=== PATIENT | female | born 1980 | race Caucasian/White ===

== ENCOUNTER 2017-05-24 20:33 | Emergency (ER) | payer BC ==
--- NOTE | 2017-05-24 21:35 | Emergency Department Record ---
History of Present Illness - General Chief Complaint: Shortness of breath Stated Complaint: JANETH CHEST KIAN Time Seen by Provider: 05/24/17 21:34 Source: Patient, Family () Mode of Arrival: Ambulatory - History of Present Illness Initial Comments: The patient states that she began having plugged ears, head congestion, post nasal drip, and sinus pressure with thick [id number] drainage two nights ago. She has a history of sinus infections and this feels like her prior infections. [place] when she developed chest tightness all the way around and felt she needed to loosen her bra. Onset/Timin -: Days(s) Severity scale (1-10): 8 Quality: Other Consistency: Constant Improves With: Nothing Worsens With: Coughing, Inspiration Associated Symptoms: Cough, Nausea/vomiting, Pain with inspiration Treatments Prior to Arrival: None - Related Data Home Oxygen Therapy: No Home Medications Medication Instructions Recorded Confirmed Last Taken Lamotrigine [Lamictal] 150 mg PO DAILY 05/24/17 05/24/17 05/24/17 Allergies Allergy/AdvReac Type Severity Reaction Status Date / Time No Known Drug Allergies Allergy Verified 05/24/17 21:00 Travel Screening - Travel/Exposure Within Last 30 Days Have you traveled within the last 30 days?: No - Travel Symptoms Symptom Screening: None Review of Systems Reviewed: No additional complaints except as noted below Constitutional: Reports: As per HPI. Denies: Chills, Fever, Malaise, Night sweats, Weakness, Weight change Eyes: Reports: As per HPI. Denies: Eye discharge, Eye pain, Photophobia, Vision change ENT: Reports: As per HPI. Denies: Congestion, Dental pain, Ear pain, Epistaxis , Hearing loss, Throat pain Respiratory: Reports: As per HPI. Denies: Cough, Dyspnea, Hemoptysis, Stridor, Wheezes Cardiovascular: Reports: As per HPI. Denies: Arrhythmia, Chest pain, Dyspnea on exertion, Edema, Murmurs, Orthopnea, Palpitations, Paroxysmal nocturnal dyspnea, Rheumatic Fever, Syncope Endocrine: Reports: As per HPI. Denies: Fatigue, Heat or cold intolerance, Polydipsia, Polyuria Gastrointestinal: Reports: As per HPI. Denies: Abdominal pain, Constipation, Diarrhea, Hematemesis, Hematochezia, Melena, Nausea, Vomiting Genitourinary: Reports: As per HPI. Denies: Abnormal menses, Discharge, Dyspareunia, Dysuria, Frequency, Hematuria, Incontinence, Retention, Urgency Musculoskeletal: Reports: As per HPI. Denies: Arthralgia, Back pain, Gout, Joint swelling, Myalgia, Neck pain Skin: Reports: As per HPI. Denies: Bruising, Change in color, Change in hair/ nails, Lesions, Pruritus, Rash Neurological: Reports: As per HPI. Denies: Abnormal gait, Confusion, Headache, Numbness, Paresthesias, Seizure, Tingling, Tremors, Vertigo, Weakness Psychiatric: Reports: As per HPI. Denies: Anxiety, Auditory hallucinations, Depression, Homicidal thoughts, Suicidal thoughts, Visual hallucinations Hematological/Lymphatic: Reports: As per HPI. Denies: Anemia, Blood Clots, Easy bleeding, Easy bruising, Swollen glands Past Medical History - SOCIAL HISTORY Smoking Status: Current every day smoker - RESPIRATORY Hx Respiratory Disorders: No - CARDIOVASCULAR Hx Cardio Disorders: Yes Hx Deep Vein Thrombosis: Yes (R side of chest?) - NEURO Hx Neuro Disorders: Yes Hx Seizures: Yes (no sz 15 yrs) - GI Hx GI Disorders: No - Hx Genitourinary Disorders: Yes Hx Kidney Stones: Yes - ENDOCRINE Hx Endocrine Disorders: No - MUSCULOSKELETAL Hx Musculoskeletal Disorders: No - PSYCH Hx Psych Problems: Yes Hx Anxiety: Yes Hx Depression: Yes - HEMATOLOGY/ONCOLOGY Hx Hematology/Oncology Disorders: No Family Medical History Any Significant Family History?: Yes Hx Cancer: Grandparents Hx Diabetes: Grandparents Hx Heart Disease: Father, Grandparents Physical Exam - General General Appearance: Alert, Oriented x3, Cooperative, No acute distress ( congested plugged voice ) - Head Head exam: Normal inspection - Eye Eye exam: Normal appearance, PERRL Pupils: Normal accommodation - ENT ENT exam: Normal exam, Mucous membranes moist, Normal external ear exam, Normal orophraynx, TM's normal bilaterally (normal landmarks, pink TM's) Ear exam: Normal external inspection. negative: External canal tenderness Nasal Exam: Normal inspection, Sinus tenderness (all sinuses tender). negative : Discharge Mouth exam: Normal external inspection, Tongue normal Teeth exam: Normal inspection. negative: Dental caries Throat exam: Normal inspection. negative: Tonsillar erythema, Tonsillar exudate - Neck Neck exam: Normal inspection, Full ROM. negative: Lymphadenopathy, Meningismus , Tenderness - Respiratory Respiratory exam: Normal lung sounds bilaterally. negative: Respiratory distress - Cardiovascular Cardiovascular Exam: Normal rhythm, Normal heart sounds, Tachycardia - GI/Abdominal GI/Abdominal exam: Soft, Normal bowel sounds. negative: Tenderness - Rectal Rectal exam: Deferred - exam: Deferred - Extremities Extremities exam: Normal inspection, Full ROM, Normal capillary refill. negative: Calf tenderness, Pedal edema, Tenderness - Back Back exam: Reports: Normal inspection, Full ROM. Denies: Muscle spasm, Rash noted, Tenderness - Neurological Neurological exam: Alert, CN II-XII intact, Normal gait, Oriented X3, Reflexes normal. negative: Motor sensory deficit - Psychiatric Psychiatric exam: Normal affect, Normal mood - Skin Skin exam: Dry, Intact, Normal color, Warm Course Vital Signs 05/24/17 21:00 Temperature 100.5 F H Pulse Rate [ 109 H Pulse Ox Probe] Respiratory 26 H Rate Blood Pressure 126/92 [Left Arm] Pulse Ox 98 - Reevaluation(s) Reevaluation #1: Antibiotics being infused, results discussed, still congested but ready for DC home. 05/24/17 23:00 Medical Decision Making - Management Options MDM Management: No Additional Work-up Planned - Data Complexity MDM Data: Labs Ordered and/or Reviewed, X-Ray Ordered and/or Reviewed (CXR two view Neg per radiologist.) - Lab Data Result diagrams: 05/24/17 21:16 05/24/17 21:16 Disposition Disposition: Discharge Clinical Impression: Sinusitis, acute Qualifiers: Sinusitis location: pansinusitis Recurrence: recurrent Qualified Code(s): J01.41 - Acute recurrent pansinusitis Disposition: Home, Self-Care Condition: (1) Good Instructions: Sinusitis (ED) Additional Instructions: Take antibiotics until gone including the refill. Follow up with PCP as needed. Forms: Patient Portal Access Quality - Quality Measures Quality Measures: Adult Sinusitis - Adult Sinusitis: CT Use Quality Measure: Measure #333: Adult Sinusitis Adult Sinusitis: CT for Acute Sinusitis: < CT NOT ordered or received within 28 Days > [G9349] - Blood Pressure Screening Blood Pressure Classification: Normal BP Reading Systolic Measurement: 99 Diastolic Measurement: 51 Screening for High Blood Pressure: < Normal BP, F/U Not Required > [G8783] Normal BP Follow-up Interventions: No follow-up required
[2017-05-24] MEDS ORDERED: 0.9 % SODIUM CHLORIDE 1,000 ML BAG IV ONE ×2 (21:54→21:56)
[2017-05-24] MEDS ORDERED: ACETAMINOPHEN 325 MG TAB PO ONE (21:55)
[2017-05-24] MEDS ORDERED: ONDANSETRON HCL IV 4 MG/2 ML VIAL IVP ONE (21:55)
[2017-05-24] MEDS ORDERED: CEFTRIAXONE SODIUM 2 GM in 0.9 % SODIUM CHLORIDE 100ML 100 ML IVPB ONE (21:56)
[2017-05-24 22:04] LABS: HEMATOCRIT 40.1 % (35.0-47.0); HEMOGLOBIN 13.6 gm/dl (11.6-16.0); MEAN CELL VOLUME 90.5 fl (81-97); MEAN CORPUSCULAR HEMOGLOBIN 30.7 pg (27-33); MEAN CORPUSCULAR HGB CONC 33.9 g/dl (32-36); MEAN PLATELET VOLUME 10.6 fl (7.4-10.4); PLATELET COUNT 279 K/uL (130-400); RED BLOOD COUNT 4.43 M/uL (3.80-5.40); RED CELL DISTRIBUTION WIDTH 13.7 % (11.5-14.5); WHITE BLOOD COUNT W/O DIFF 15.3 K/uL (4.2-12.2)
[2017-05-24 22:11] LABS: ALB/GLOB RATIO 1.7 (1.1-1.8); ALBUMIN 4.4 gm/dL (3.5-5.0); ALKALINE PHOSPHATASE 78 U/L (38-126); ALT/SGPT 29 U/L (9-52); ANION GAP 12.8 (7-16); AST/SGOT 14 U/L (14-36); BILIRUBIN,TOTAL 0.39 mg/dL (0.2-1.3); BLOOD UREA NITROGEN 12 mg/dL (7-17); CARBON DIOXIDE 21.2 mmol/L (22-30); CREATININE 0.7 mg/dL (0.52-1.04); EST GLOMERULAR FILTRATION RATE > 60 ml/min; GLUCOSE,RANDOM 97 mg/dL (70-110)
[2017-05-24 22:21] LABS: INR 0.94; PROTHROMBIN TIME (PATIENT) 10.1 SECONDS (9.5-12.1)
[2017-05-24 22:27] LABS: D-DIMER 0.36 mg/L FEU (0-0.59)
[2017-05-24 22:28] LABS: TROPONIN I < 0.012 ng/mL (0.00-0.034)
[2017-05-24 22:30] LABS: URINE APPEARANCE CLEAR; URINE BILIRUBIN NEGATIVE (NEGATIVE); URINE BLOOD NEGATIVE (NEGATIVE); URINE COLOR YELLOW; URINE GLUCOSE (UA) NEGATIVE (NEGATIVE); URINE KETONE NEGATIVE (NEGATIVE); URINE LEUKOCYTE ESTERASE NEGATIVE (NEGATIVE); URINE NITRITE NEGATIVE (NEGATIVE); URINE PROTEIN NEGATIVE (NEGATIVE); URINE UROBILINOGEN 0.2 E.U./dL (0.20 - 1.00)
--- NOTE | 2017-05-24 23:48 | Emergency Department Record ---
History of Present Illness - General Chief Complaint: Shortness of breath Stated Complaint: JANETH CHEST KIAN Time Seen by Provider: 05/24/17 21:34 Source: Patient, Family () Mode of Arrival: Ambulatory - History of Present Illness Onset/Timin -: Days(s) Severity scale (1-10): 8 Quality: Other Consistency: Constant Improves With: Nothing Worsens With: Coughing, Inspiration Associated Symptoms: Cough, Nausea/vomiting, Pain with inspiration Treatments Prior to Arrival: None - Related Data Home Oxygen Therapy: No Home Medications Medication Instructions Recorded Confirmed Last Taken Lamotrigine [Lamictal] 150 mg PO DAILY 05/24/17 05/24/17 05/24/17 Previous Rx's Medication Instructions Recorded Azithromycin [Zithromax] 500 mg PO DAILY #10 tab 05/24/17 Allergies Allergy/AdvReac Type Severity Reaction Status Date / Time No Known Drug Allergies Allergy Verified 05/24/17 21:00 Travel Screening - Travel/Exposure Within Last 30 Days Have you traveled within the last 30 days?: No - Travel Symptoms Symptom Screening: None Review of Systems Constitutional: Reports: As per HPI. Denies: Chills, Fever, Malaise, Night sweats, Weakness, Weight change Eyes: Reports: As per HPI. Denies: Eye discharge, Eye pain, Photophobia, Vision change ENT: Reports: As per HPI. Denies: Congestion, Dental pain, Ear pain, Epistaxis , Hearing loss, Throat pain Respiratory: Reports: As per HPI. Denies: Cough, Dyspnea, Hemoptysis, Stridor, Wheezes Cardiovascular: Reports: As per HPI. Denies: Arrhythmia, Chest pain, Dyspnea on exertion, Edema, Murmurs, Orthopnea, Palpitations, Paroxysmal nocturnal dyspnea, Rheumatic Fever, Syncope Endocrine: Reports: As per HPI. Denies: Fatigue, Heat or cold intolerance, Polydipsia, Polyuria Gastrointestinal: Reports: As per HPI. Denies: Abdominal pain, Constipation, Diarrhea, Hematemesis, Hematochezia, Melena, Nausea, Vomiting Genitourinary: Reports: As per HPI. Denies: Abnormal menses, Discharge, Dyspareunia, Dysuria, Frequency, Hematuria, Incontinence, Retention, Urgency Musculoskeletal: Reports: As per HPI. Denies: Arthralgia, Back pain, Gout, Joint swelling, Myalgia, Neck pain Skin: Reports: As per HPI. Denies: Bruising, Change in color, Change in hair/ nails, Lesions, Pruritus, Rash Neurological: Reports: As per HPI. Denies: Abnormal gait, Confusion, Headache, Numbness, Paresthesias, Seizure, Tingling, Tremors, Vertigo, Weakness Psychiatric: Reports: As per HPI. Denies: Anxiety, Auditory hallucinations, Depression, Homicidal thoughts, Suicidal thoughts, Visual hallucinations Hematological/Lymphatic: Reports: As per HPI. Denies: Anemia, Blood Clots, Easy bleeding, Easy bruising, Swollen glands Past Medical History - SOCIAL HISTORY Smoking Status: Current every day smoker - RESPIRATORY Hx Respiratory Disorders: No - CARDIOVASCULAR Hx Cardio Disorders: Yes Hx Deep Vein Thrombosis: Yes (R side of chest?) - NEURO Hx Neuro Disorders: Yes Hx Seizures: Yes (no sz 15 yrs) - GI Hx GI Disorders: No - Hx Genitourinary Disorders: Yes Hx Kidney Stones: Yes - ENDOCRINE Hx Endocrine Disorders: No - MUSCULOSKELETAL Hx Musculoskeletal Disorders: No - PSYCH Hx Psych Problems: Yes Hx Anxiety: Yes Hx Depression: Yes - HEMATOLOGY/ONCOLOGY Hx Hematology/Oncology Disorders: No Family Medical History Any Significant Family History?: Yes Hx Cancer: Grandparents Hx Diabetes: Grandparents Hx Heart Disease: Father, Grandparents Course Vital Signs 05/24/17 05/24/17 05/24/17 21:00 22:24 23:41 Temperature 100.5 F H 99.3 F Pulse Rate [ 90 80 Floor Framer ] Pulse Rate [ 109 H Pulse Ox Probe] Respiratory 26 H 18 16 Rate Blood Pressure 126/92 107/68 [Left Arm] Blood Pressure 99/51 [Right Arm] Pulse Ox 98 97 98 Medical Decision Making - Lab Data Result diagrams: 05/24/17 21:16 05/24/17 21:16 Lab Results 05/24/17 05/24/17 05/24/17 Range/Units 21:16 21:16 21:16 WBC 15.3 H (4.2-12.2) K/uL RBC 4.43 (3.80-5.40) M/uL Hgb 13.6 (11.6-16.0) gm/dl Hct 40.1 (35.0-47.0) % MCV 90.5 (81-97) fl MCH 30.7 (27-33) pg MCHC 33.9 (32-36) g/dl RDW 13.7 (11.5-14.5) % Plt Count 279 (130-400) K/uL MPV 10.6 H (7.4-10.4) fl Neutrophils % 79.0 (47-80) % Band Neutrophils % 3.0 (0-5) % Eosinophils % Not Reportable Basophils % Not Reportable Lymphocytes 16.0 (16-45) % Monocytes 2.0 (0-9) % Basophils 0.0 (0-6) % Eosinophil Count 0.0 (0-6) % PT 10.1 (9.5-12.1) SECONDS INR 0.94 D-Dimer 0.36 (0-0.59) mg/L FEU Sodium 141 (136-145) mmol/L Potassium 3.9 (3.5-5.1) mmol/L Chloride 107 (98-107) mmol/L Carbon Dioxide 21.2 L (22-30) mmol/L Anion Gap 12.8 (7-16) BUN 12 (7-17) mg/dL Creatinine 0.7 (0.52-1.04) mg/dL Estimated GFR > 60 ml/min Random Glucose 97 (70-110) mg/dL Lactic Acid (0.7-2.1) mmol/L Calcium 9.2 (8.5-10.1) mg/dL Total Bilirubin 0.39 (0.2-1.3) mg/dL AST 14 (14-36) U/L ALT 29 (9-52) U/L Alkaline Phosphatase 78 (38-126) U/L Troponin I < 0.012 (0.00-0.034) ng/mL Total Protein 7.0 (6.3-8.2) gm/dL Albumin 4.4 (3.5-5.0) gm/dL Globulin 2.6 (1.4-4.8) gm/dL Albumin/Globulin Ratio 1.7 (1.1-1.8) Urine Color Urine Appearance Urine pH (5.0-8.0) Ur Specific [place] (1.002-1.030) Urine Protein (NEGATIVE) Urine Glucose (UA) (NEGATIVE) Urine Ketones (NEGATIVE) Urine Blood (NEGATIVE) Urine Nitrite (NEGATIVE) Urine Bilirubin (NEGATIVE) Urine Urobilinogen (0.20 - 1.00) E.U./dL Ur Leukocyte Esterase (NEGATIVE) 05/24/17 05/24/17 Range/Units 22:22 22:22 WBC (4.2-12.2) K/uL RBC (3.80-5.40) M/uL Hgb (11.6-16.0) gm/dl Hct (35.0-47.0) % MCV (81-97) fl MCH (27-33) pg MCHC (32-36) g/dl RDW (11.5-14.5) % Plt Count (130-400) K/uL MPV (7.4-10.4) fl Neutrophils % (47-80) % Band Neutrophils % (0-5) % Eosinophils % Basophils % Lymphocytes (16-45) % Monocytes (0-9) % Basophils (0-6) % Eosinophil Count (0-6) % PT (9.5-12.1) SECONDS INR D-Dimer (0-0.59) mg/L FEU Sodium (136-145) mmol/L Potassium (3.5-5.1) mmol/L Chloride (98-107) mmol/L Carbon Dioxide (22-30) mmol/L Anion Gap (7-16) BUN (7-17) mg/dL Creatinine (0.52-1.04) mg/dL Estimated GFR ml/min Random Glucose (70-110) mg/dL Lactic Acid 1.1 (0.7-2.1) mmol/L Calcium (8.5-10.1) mg/dL Total Bilirubin (0.2-1.3) mg/dL AST (14-36) U/L ALT (9-52) U/L Alkaline Phosphatase (38-126) U/L Troponin I (0.00-0.034) ng/mL Total Protein (6.3-8.2) gm/dL Albumin (3.5-5.0) gm/dL Globulin (1.4-4.8) gm/dL Albumin/Globulin Ratio (1.1-1.8) Urine Color Yellow Urine Appearance Clear Urine pH 6.5 (5.0-8.0) Ur Specific [place] 1.020 (1.002-1.030) Urine Protein Negative (NEGATIVE) Urine Glucose (UA) Negative (NEGATIVE) Urine Ketones Negative (NEGATIVE) Urine Blood Negative (NEGATIVE) Urine Nitrite Negative (NEGATIVE) Urine Bilirubin Negative (NEGATIVE) Urine Urobilinogen 0.2 (0.20 - 1.00) E.U./dL Ur Leukocyte Esterase Negative (NEGATIVE) Disposition Clinical Impression: Sinusitis, acute Qualifiers: Sinusitis location: pansinusitis Recurrence: recurrent Qualified Code(s): J01.41 - Acute recurrent pansinusitis Disposition: Home, Self-Care Condition: (1) Good Instructions: Sinusitis (ED) Additional Instructions: Take antibiotics until gone including the refill. Follow up with PCP as needed. Prescriptions: Azithromycin [Zithromax] 500 mg PO DAILY #10 tab Forms: Patient Portal Access Quality - Quality Measures Quality Measures: N/A - Blood Pressure Screening Blood Pressure Classification: Normal BP Reading Systolic Measurement: 107 Diastolic Measurement: 68 Screening for High Blood Pressure: < Normal BP, F/U Not Required > [G8783] Normal BP Follow-up Interventions: No follow-up required
--- NOTE | 2017-05-26 13:14 | RADIOLOGY REPORT ---
EXAM: CHEST, TWO VIEWS HISTORY: CONGESTION AND PAIN. TECHNIQUE: Two views of the chest were obtained. Comparison: None. FINDINGS: The heart is not enlarged and there is no mediastinal mass. No infiltrate or vascular congestion identified. IMPRESSION: UNREMARKABLE CHEST EXAMINATION. JOB NUMBER: [id number] [id number]
== END 2017-05-24 23:55 | disposition home or self-care (01) ==
LOC: ER 20:33
DX: J01.41 Acute recurrent pansinusitis (principal); R06.02 Shortness of breath; R11.2 Nausea with vomiting, unspecified; I49.5 Sick sinus syndrome
CPT/HCPCS: 99284 ×2; 96365; 96375; 83605; 85610; 84484; 80053; 81003; 85379; 85027; 71020; 93005; 93010; J2405